=== PATIENT | male | born 1975 | race Caucasian/White ===

== ENCOUNTER 2019-09-04 20:26 | Emergency (ER) | payer OTHER ==
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
[2019-09-04 20:40] VITALS: O2SAT 99
[2019-09-04] MEDS ORDERED: LIDOCAINE 1% W/ EPINEPHRINE 20 ML VIAL INJ ONE (20:40)
[2019-09-04] MEDS ORDERED: TETANUS,DIPHTHERIA,PERTUSSIS 1 EA SYG IM ONE (20:40)
[2019-09-04] MEDS ORDERED: ceFAZolin SODIUM 1 GM VIAL IM ONE (20:41)
[2019-09-04] MEDS ORDERED: CHLORHEXIDINE GLUCONATE 4 % 15 ML UD TOP ONE (20:46)
[2019-09-04] MEDS ORDERED: NEOMYCIN-BACITRACIN-POLYMYXIN 0.9 GM UD TOP ONE (22:06)
[2019-09-04 22:10] VITALS: BP 134/99; TEMP 98
== END 2019-09-04 22:11 | disposition home or self-care (01) ==
LOC: ER 20:26
DX: S01.111A Laceration without foreign body of right eyelid and periocular area, initial encounter (principal); S01.81XA Laceration without foreign body of other part of head, initial encounter; V86.95XA Unspecified occupant of 3- or 4- wheeled all-terrain vehicle (ATV) injured in nontraffic accident, initial encounter; Y92.9 Unspecified place or not applicable